=== PATIENT | female | born 1945 | race Caucasian/White ===

== ENCOUNTER 2017-05-28 04:54 | Emergency (ER) | payer OTHER, BC ==
[2017-05-28 05:04] VITALS: BMI 26.5
--- NOTE | 2017-05-28 05:24 | PDOC ---
History of Present Illness - General Chief Complaint: Cold Symptoms Stated Complaint: COUGH/CONGESTION Time Seen by Provider: 05/28/17 04:59 History Source: Patient Exam Limitations: No Limitations - History of Present Illness Initial Comments: 05/28/17 05:24 This is a 71-year-old female who comes in complaining cough, congestion, fever, chills, headache, body aches and chest pain. Patient has history significant for hypertension and high cholesterol. Patient said she is coughing up yellowish phlegm. Patient said she has fevers but never took her temperature. Patient said she did get the flu shot this year. PAST MEDICAL HISTORY: no significant history PAST SURGICAL HISTORY: no significant history FAMILY HISTORY: no pertinant history SOCIAL HISTORY: Pt lives with family and is employed. MEDICATIONS: reviewed ALLERGIES: As per nursing notes Review of Systems General: No fevers or chills, no weakness, no weight loss HEENT: No change in vision. No sore throat,. No ear pain CardioVascular: No chest pain or shortness of breath Respiratory:No cough, or wheezing. Gastrointestinal: no nausea, vomitting, diarrhea or constipation, No rectal bleeding Genitourinary: No dysuria, hematuria, or frequency Musculoskeletal: No joint or muscle pain or swelling Neurologic: No headache, vertigo, dizziness or loss of consciousness Psychiatric: nor depression Skin: No rashes or easy bruising Endocrine: no increased thirst or abnormal weight change Allergic: no skin or latex allergy All other systems reviewed and normal Exam: General: Well-nourished well-developed individual, no acute distress HEENT: Throat: Normal, tonsils normal, no erythema or exudate Neck: Supple, no meningeal signs, no lymphadenopathy Eyes::Pupils equal reactive and round, extraocular motion intact Chest: Nontender to palpation Cardiac: S1-S2 normal, regular rate and rhythm, no murmurs rubs or gallops Respiratory: Lungs clear to auscultation bilateral Abdomen: Soft, nondistended, normal bowel sounds, nontender to palpation diffusely Extremities: Warm, dry, no cyanosis, clubbing, or edema Skin: No rashes Neuro: Alert and oriented x3, CN II - XII intact, nonfocal exam with normal strength, normal sensation, normal reflexes, normal gait, Psych: Normal mood and affect Medical decision making This is a 71-year-old female with history of hypertension high cholesterol comes in with 2 days of flulike illness. Patient is also complaining of some anterior chest pain most likely secondary to the coughing and her underlying viral illness. However patient does have risk factors for coronary artery disease so We'll obtain CBC, comp, cardiac profile, EKG, chest x-ray and influenza screen. Will reassess and review results of workup 07:00 Care of this patient was transferred to Dr. Palacios at 7 a.m. Workup is still pending Case discussed in detail with oncoming Emergency Physician including history, physical exam and ancillary studies. Oncoming Emergency Physician has assumed care for the patient and will complete the evaluation and treatment. Patient is aware of the plan. Pt is clinically unchanged and stable. Past History - Past Medical History Allergies/Adverse Reactions: Allergies Allergy/AdvReac Type Severity Reaction Status Date / Time No Known Allergies Allergy Verified 01/01/14 12:40 Home Medications: Ambulatory Orders Cholecalciferol (Vitamin D3) [Vitamin D3] 500 unit PO DAILY 01/01/14 Levothyroxine [Synthroid -] 75 mcg PO DAILY 01/01/14 Rosuvastatin Calcium [Crestor] 20 mg PO DAILY 01/01/14 Aspirin [ASA -] 81 mg PO DAILY 01/02/14 Bisoprolol/Hydrochlorothiazide [Ziac 10-6.25 mg Tablet] 1 each PO DAILY Guaifenesin AC [Robitussin-AC] 1 - 2 tsp PO TID PRN #120 ml MDD 6 05/28/17 Metoprolol Tartrate 25 mg PO DAILY 05/28/17 COPD: No HTN: Yes Hypercholesterolemia: Yes Thyroid Disease: Yes - Suicide/Smoking/Psychosocial Hx Smoking History: Never smoked Have you smoked in the past 12 months: No Hx Alcohol Use: No Substance Use Type: None *Physical Exam - Vital Signs Last Vital Signs Temp Pulse Resp BP Pulse Ox 98.6 F 80 20 160/94 97 05/28/17 05:02 05/28/17 05:02 05/28/17 05:02 05/28/17 05:02 05/28/17 05:02 Heart Score/ECG Review - History History: Slightly suspicious - Electrocardiogram EKG: Non specific repolarization disturbance - Age Age: >/= 65 - Risk Factors Risk Factors Heart Score: Yes Hx Hypercholesterolemia, Yes Hx Hypertension Based on the list above the patient has:: 1-2 risk factors - Troponin Troponin: </= normal limit - Score Heart Score - Total: 4 ED Treatment Course - LABORATORY CBC & Chemistry Diagram: 05/28/17 05:44 05/28/17 05:40 *DC/Admit/Observation/Transfer Diagnosis at time of Disposition: Acute viral bronchitis - Discharge Dispostion Disposition: HOME Condition at time of disposition: Stable - Prescriptions Prescriptions: Guaifenesin AC [Robitussin-AC] 1 - 2 tsp PO TID PRN #120 ml MDD 6 PRN Reason: Cough - Referrals Referrals: Marquita Mancuso [Primary Care Provider] - 2 Days - Patient Instructions Printed Discharge Instructions: DI for Acute Bronchitis - Post Discharge Activity Forms/Work/School Notes: Back to Work
[2017-05-28 06:20] LABS: URINE APPEARANCE CLEAR; URINE BILIRUBIN NEGATIVE (NEGATIVE); URINE BLOOD 2+ (NEGATIVE); URINE COLOR STRAW; URINE GLUCOSE (UA) NEGATIVE (NEGATIVE); URINE KETONE NEGATIVE (NEGATIVE); URINE LEUK ESTERASE NEGATIVE (NEGATIVE); URINE NITRITE NEGATIVE (NEGATIVE); URINE PROTEIN NEGATIVE (NEGATIVE); URINE UROBILINOGEN NEGATIVE mg/dL (0.2-1.0)
[2017-05-28 06:24] LABS: BASO % 1.2 % (0-2.0); HEMATOCRIT 41.7 % (32.4-45.2); HEMOGLOBIN 14.2 GM/dL (10.7-15.3); LYMPH % 31.5 % (8-40); MCH 30.1 pg (25.7-33.7); MCHC 34.1 g/dl (32.0-36.0); MEAN CELL VOLUME 88.2 fl (80-96); MEAN PLT VOLUME 8.4 fl (7.5-11.1); MONO % 11.2 % (3.8-10.2); NEUT % 54.1 % (42.8-82.8); PLATELET COUNT 243 K/MM3 (134-434); RBC 4.72 M/mm3 (3.60-5.2); WHITE BLOOD COUNT 5.6 K/mm3 (4.0-10.0)
[2017-05-28 06:43] LABS: ALBUMIN 4.1 g/dl (3.4-5.0); ANION GAP 8 (8-16); BILIRUBIN,TOTAL 0.4 mg/dL (0.2-1.0); BLOOD UREA NITROGEN 14 mg/dL (7-18); CALCIUM 8.7 mg/dL (8.5-10.1); CHLORIDE 108 mmol/L (98-107); CO2 24 mmol/L (21-32); CREATININE 0.8 mg/dL (0.55-1.02); GLUCOSE,RANDOM 111 mg/dL (74-106); SGOT/AST 13 U/L (15-37); SGPT/ALT 23 U/L (12-78); SODIUM 140 mmol/L (136-145); TOT PROT 7.4 g/dl (6.4-8.2)
[2017-05-28 06:44] LABS: ALK PHOS 65 U/L (45-117)
[2017-05-28 08:04] LABS: URINE BACTERIA RARE /hpf (NONE SEEN); URINE MUCUS RARE
[2017-05-28 08:05] VITALS: BP 147/78; PULSE 74; TEMP 98
--- NOTE | 2017-05-28 08:17 | PDOC ---
*Physical Exam - Vital Signs Last Vital Signs Temp Pulse Resp BP Pulse Ox 98 F 74 18 147/78 97 05/28/17 08:04 05/28/17 08:04 05/28/17 08:04 05/28/17 08:04 05/28/17 08:04 - Physical Exam Comments: 05/28/17 08:15 The patient's cardiac enzymes are negative. Chest x-ray read by the radiologist negative CBC and chemistries without significant abnormalities, including a normal white count Patient has no chest pain at present, and the pain she had described seems more related to her coughing and chest congestion, muscle fatigue or chest wall irritation/inflammation Rest of medication prescribed, return to ER if further symptoms, otherwise see primary physician 2 or 3 days for recheck. Fully ambulatory, in no distress respiratory or otherwise, at discharge to follow-up as recommended ED Treatment Course - LABORATORY CBC & Chemistry Diagram: 05/28/17 05:44 05/28/17 05:40 - ADDITIONAL ORDERS Additional order review: Laboratory Results 05/28/17 05/28/17 05/28/17 05:44 05:40 05:40 Sodium 140 Potassium 4.0 Chloride 108 H Carbon Dioxide 24 Anion Gap 8 BUN 14 Creatinine 0.8 Creat Clearance w eGFR > 60 Random Glucose 111 H Calcium 8.7 Total Bilirubin 0.4 AST 13 L ALT 23 Alkaline Phosphatase 65 Creatine Kinase 56 Troponin I < 0.02 Total Protein 7.4 Albumin 4.1 Urine Color Straw Urine Appearance Clear Urine pH 6.0 Ur Specific Stigler 1.009 Urine Protein Negative Urine Glucose (UA) Negative Urine Ketones Negative Urine Blood 2+ H Urine Nitrite Negative Urine Bilirubin Negative Urine Urobilinogen Negative Ur Leukocyte Esterase Negative Urine WBC (Auto) 1 Urine RBC (Auto) 2 Urine Bacteria Rare Urine Mucus Rare 05/28/17 05:44 Influenza Types A,B Antigen (TOY) - Final Nasopharyngeal Swab - Final 05/28/17 05:44 RBC 4.72 MCV 88.2 MCHC 34.1 RDW 13.0 MPV 8.4 Neutrophils % 54.1 Lymphocytes % 31.5 Monocytes % 11.2 H Eosinophils % 2.0 Basophils % 1.2 *DC/Admit/Observation/Transfer Diagnosis at time of Disposition: Acute viral bronchitis - Discharge Dispostion Disposition: HOME Condition at time of disposition: Stable Admit: No - Prescriptions Prescriptions: Guaifenesin AC [Robitussin-AC] 1 - 2 tsp PO TID PRN #120 ml MDD 6 PRN Reason: Cough - Referrals Referrals: Marquita Mancuso [Primary Care Provider] - 2 Days - Patient Instructions Printed Discharge Instructions: DI for Acute Bronchitis - Post Discharge Activity Forms/Work/School Notes: Back to Work
--- NOTE | 2017-05-30 17:18 | EKG ---
Test Reason : Blood Pressure : / mmHG Vent. Rate : 077 BPM Atrial Rate : 077 BPM P-R Int : 164 ms QRS Dur : 100 ms QT Int : 396 ms P-R-T Axes : 038 -49 019 degrees QTc Int : 448 ms NORMAL SINUS RHYTHM LEFT AXIS DEVIATION MINIMAL VOLTAGE CRITERIA FOR LVH, MAY BE NORMAL VARIANT ANTERIOR INFARCT , AGE UNDETERMINED ABNORMAL ECG NO PREVIOUS ECGS AVAILABLE Confirmed by MIKALA PHILIP MD ([id number]) on 05/30/2017 5:18:00 PM Referred By: Confirmed By:MIKALA PHILIP MD
== END 2017-05-28 08:30 | disposition home or self-care (01) ==
LOC: FER 04:54
DX: J20.8 Acute bronchitis due to other specified organisms (principal); I10 Essential (primary) hypertension; E07.9 Disorder of thyroid, unspecified; E78.00 Pure hypercholesterolemia, unspecified
CPT/HCPCS: 36415; 71045-TC; 80053; 81003; 81015; 82550; 84484; 85025; 87804; 93005; 99282-25

== ENCOUNTER 2020-01-09 09:27 | Emergency (ER) | payer OTHER, BC ==
--- NOTE | 2020-01-09 09:30 | PDOC ---
History of Present Illness - General Chief Complaint: Urinary Problem Stated Complaint: burning/blood on urination Time Seen by Provider: 01/09/20 09:30 History Source: Patient Exam Limitations: No Limitations - History of Present Illness Travel History: No Initial Comments: 01/09/20 09:51 74y F hx of htn, hypothyfoidism, hl, presenst with complaint of dysuria for the past day, with some scant hematuria this morning. Pt denies any fever/chills, abd pain, n/v, back pain, cp, sob, vag dc or bleeding, diarrhea. No new medications. Hyun frequent UTIs - last one was many years ago. PMD: Dr. Moreno No known alelrgies Past History - Medical History Allergies/Adverse Reactions: Allergies Allergy/AdvReac Type Severity Reaction Status Date / Time No Known Allergies Allergy Verified 01/09/20 09:29 Home Medications: Ambulatory Orders Cholecalciferol (Vitamin D3) [Vitamin D3] 500 unit PO DAILY 01/01/14 Levothyroxine [Synthroid -] 75 mcg PO DAILY 01/01/14 Rosuvastatin Calcium [Crestor] 20 mg PO DAILY 01/01/14 Aspirin [ASA -] 81 mg PO DAILY 01/02/14 Metoprolol Tartrate 25 mg PO DAILY 05/28/17 Nitrofurantoin Monohyd/M-Cryst [Macrobid -] 100 mg PO BID #14 capsule 01/09/20 COPD: No HTN: Yes Hypercholesterolemia: Yes Thyroid Disease: Yes - Psycho-Social/Smoking History Smoking History: Never smoked Have you smoked in the past 12 months: No Review of Systems - Review of Systems Able to Perform ROS?: Yes Comments:: 01/09/20 09:52 Constitutional - no reported Fever, Chills, HEENT: no reported vision changes, sore throat Respiratory: no reported cough, sob, hemoptysis Cardiac: no reported chest pain, palpitations, light headedness, leg swelling Abd/GI: no reported abd pain, nausea, vomiting, blood per rectum, melena, diarrhea : +dysuria, no reported frequency, discharge Musculskelatal - no reported back pain, joint swelling skin - no reported bruising, erythema, rash neurological: no reported headache, numbness, focal weakness, tingling, ataxia, hematologic: no reported easy bruising, easy bleeding *Physical Exam - Physical Exam 01/09/20 09:54 GENERAL: The patient is awake, alert, and fully oriented, Nontoxic - in no acute distress. LUNGS: Breath sounds equal, clear to auscultation bilaterally. No wheezes, no rhonchi, no rales. HEART: Regular rate and rhythm, normal S1 and S2 without murmur, rub or gallop. ABDOMEN: Soft, nontender, No guarding, no rebound. No CVA tenderness EXTREMITIES: Normal range of motion, no edema. NEUROLOGICAL: No facial assymetry, Normal speech, PSYCH: Normal mood, normal affect. SKIN: Warm, Dry, normal turgor, Medical Decision Making - Medical Decision Making 01/09/20 09:54 Will obtain UA and urine culture to rule out UTI> No systemic complaints 01/09/20 10:27 UA suggestive of UTI will treat with macrobid will refer to PMD return precautions were discussed 01/09/20 10:27 I discussed the physical exam findings, ancillary test results and final diagnoses with the patient. I answered all of the patient's questions. The patient was satisfied with the care received and felt comfortable with the discharge plan and treatment plan. The patient will call their primary care physician within 24 hours to arrange follow-up and will return to the Emergency Department with any new, persistent or worsening symptoms. Discharge - Discharge Information Problems reviewed: Yes Clinical Impression/Diagnosis: Urinary tract infection Qualifiers: Urinary tract infection type: site unspecified Hematuria presence: with hematuria Qualified Code(s): N39.0 - Urinary tract infection, site not specified; R31.9 - Hematuria, unspecified Condition: Stable Disposition: HOME - Admission No - Additional Discharge Information Prescriptions: Nitrofurantoin Monohyd/M-Cryst [Macrobid -] 100 mg PO BID #14 capsule - Follow up/Referral Referrals: Mindy Moreno MD [Non Staff, Medical] - - Patient Discharge Instructions Patient Printed Discharge Instructions: DI for Urinary Tract Infection (UTI) Additional Instructions: Return to the emergency department immediately with ANY new, persistent or worsening symptoms Including any fever, chills, back pain, vomiting or any other concerns. Take the antibiotics as prescribed You MUST call and follow up with your doctor in 3-4 days for further evaluation of your symptoms. Results were discussed with you. Please make sure your doctor reviews the results of your emergency evaluation. Your Emergency Department visit is not complete without a follow up with your doctor. Print Language: CYMRO - Post Discharge Activity
[2020-01-09 09:37] VITALS: BP 156/97; PULSE 74; TEMP 97.9; BMI 27.3
[2020-01-09 10:54] LABS: EPITHELIAL CELLS FEW /hpf
== END 2020-01-09 10:35 | disposition home or self-care (01) ==
LOC: FER 09:27
DX: N39.0 Urinary tract infection, site not specified (principal)
CPT/HCPCS: 81003; 81015; 87086; 99283-25

== ENCOUNTER 2020-07-15 13:51 | Emergency (ER) | payer OTHER, BC | END 2020-07-15 14:10 | disposition home or self-care (01) | LOC: JVIRT 13:51 | DX: M79.10 Myalgia, unspecified site (principal); R05 Cough; Z20.822 Contact with and (suspected) exposure to COVID-19 | CPT/HCPCS: C9803; G2251-GT; U0003 ==

== ENCOUNTER 2020-07-22 13:30 | Emergency (ER) | payer OTHER, BC | END 2020-07-22 16:03 | disposition home or self-care (01) | LOC: JVIRT 13:30 | DX: U07.1 COVID-19 (principal) | CPT/HCPCS: C9803; G2251-GT; U0003 ==

== ENCOUNTER 2020-08-06 13:43 | Emergency (ER) | payer OTHER, BC | END 2020-08-06 14:56 | disposition home or self-care (01) | LOC: JVIRT 13:43 | DX: U07.1 COVID-19 (principal) | CPT/HCPCS: C9803; G2251-GT; U0003 ==

== ENCOUNTER 2023-08-01 13:39 | Emergency (ER) | payer OTHER, BC ==
[2023-08-01 14:12] VITALS: BP 139/77; PULSE 90; RESP 16; TEMP 99.7; BMI 27.6
[2023-08-01] MEDS ORDERED: guaiFENesin/CODEINE 10 ML UNIT-DOSE CUPS PO ONE (14:19)
[2023-08-01] MEDS ORDERED: ACETAMINOPHEN 325 MG TABLET (FP) ONE (14:36)
[2023-08-01] MEDS ORDERED: ALBUTEROL SO4 2.5/IPRATROPIUM 0.5 INH SOL 3 ML VIAL.NEB. NEB ONE (14:36)
[2023-08-01] MEDS ORDERED: guaiFENesin/CODEINE 10 ML UNIT-DOSE CUPS ONE (14:36)
[2023-08-01] MEDS: ACETAMINOPHEN 325 MG TABLET (FP) PO ONE (14:40)
[2023-08-01] MEDS: ALBUTEROL SO4 2.5/IPRATROPIUM 0.5 INH SOL 3 ML VIAL.NEB. NEB ONE (14:40)
== END 2023-08-01 15:41 | disposition home or self-care (01) ==
LOC: FER 13:39
PROC: 3E0F7GC Introduction of Other Therapeutic Substance into Respiratory Tract, Via Natural or Artificial Opening (ICD-10-PCS; principal; 2023-08-01)
DX: R05.9 Cough, unspecified (principal); B34.9 Viral infection, unspecified; M79.10 Myalgia, unspecified site; R09.81 Nasal congestion; R25.2 Cramp and spasm; R53.81 Other malaise; Z20.822 Contact with and (suspected) exposure to COVID-19
CPT/HCPCS: 0241U-QW; 71045-TC-FY; 99284-25

== ENCOUNTER 2023-08-05 21:15 | Inpatient (IN) | payer OTHER, BC ==
[2023-08-05 22:15] LABS: HEMOGLOBIN 13.6 G/dL (10.7-15.3); MCH 30.6 pg (25.7-33.7); MCHC 34.8 g/dl (32.0-36.0); MEAN CELL VOLUME 87.9 fl (80-96); MEAN PLT VOLUME 8.1 fl (7.5-11.1); PLATELET COUNT 251.1 10^3/uL (134-434); RBC 4.44 10^6/uL (3.60-5.2); RDW 13.5 % (11.6-15.6); WHITE BLOOD COUNT 7.1 10^3/uL (4.0-10.8)
[2023-08-05] MEDS: ALBUTEROL SO4 2.5/IPRATROPIUM 0.5 INH SOL 3 ML VIAL.NEB. NEB SCH (22:22)
[2023-08-05] MEDS: methylPREDNISolone NA SUCC 125 MG/2 ML VIAL IVPUSH ONE (22:22)
[2023-08-05] MEDS ORDERED: ALBUTEROL SO4 2.5/IPRATROPIUM 0.5 INH SOL 3 ML VIAL.NEB. NEB ONE (22:23)
[2023-08-05 22:36] LABS: ALBUMIN 4.6 g/dl (3.4-5.0); BILIRUBIN,TOTAL 0.5 mg/dl (0.2-1); CALCIUM 9.6 mg/dl (8.5-10.1); CREATININE 0.7 mg/dl (0.6-1.3); POTASSIUM 3.6 mmol/L (3.5-5.1); TOT PROT 7.1 g/dl (6.4-8.2)
[2023-08-05] MEDS ORDERED: DOCUSATE SODIUM 100 MG CAPSULE (FP) PO PRN (23:41)
[2023-08-05] MEDS ORDERED: ACETAMINOPHEN 325 MG TABLET (FP) PO PRN (23:41)
[2023-08-05] MEDS ORDERED: ALBUTEROL SO4 2.5/IPRATROPIUM 0.5 INH SOL 3 ML VIAL.NEB. NEB PRN (23:49)
[2023-08-06 01:33] VITALS: BMI 28.3
[2023-08-06] MEDS: methylPREDNISolone NA SUCC 40 MG/1 ML VIAL IVPUSH SCH (03:23)
[2023-08-06] MEDS: CEFTRIAXONE 1 GM in DEXTROSE 5%-WATER - 50 ML IVPB SCH (05:05)
[2023-08-06] MEDS ORDERED: INSULIN ASPART SLIDING SCALE (NOVOLOG) 1 VIAL SQ ONE (06:06)
[2023-08-06] MEDS: INSULIN ASPART SLIDING SCALE (NOVOLOG) 1 VIAL SQ SCH (06:18)
[2023-08-06] MEDS: ALBUTEROL SO4 2.5/IPRATROPIUM 0.5 INH SOL 3 ML VIAL.NEB. NEB SCH (08:14)
[2023-08-06] MEDS: LEVOTHYROXINE NA 100 MCG TABLET (FP) PO SCH (08:16)
[2023-08-06 08:50] LABS: CALCIUM 9.5 mg/dl (8.5-10.1); CREATININE 0.8 mg/dl (0.6-1.3); MAGNESIUM 1.7 mg/dL (1.8-2.4); PHOSPHOROUS 3.4 (2.5-4.9); POTASSIUM 3.6 mmol/L (3.5-5.1)
[2023-08-06] MEDS ORDERED: MAGNESIUM SULF 50% (8.12 MEQ/2 ML-1 GM VIAL) IVPB ONE (09:03)
[2023-08-06] MEDS: MAGNESIUM 1GM/D5W - 1 GM/100 ML IVPB IVPB ONE (09:19)
[2023-08-06] MEDS: LORATADINE 10 MG TABLET PO SCH (09:20)
[2023-08-06] MEDS: CHOLECALCIFEROL (VIT D3) 1,000 UNIT (25 MCG) TABLET PO SCH (09:20)
[2023-08-06] MEDS: PANTOPRAZOLE 40 MG TABLET PO SCH (09:20)
[2023-08-06] MEDS: metoPROLOL SUCCINATE 25 MG TAB.SR.24H (FP) PO SCH (09:20)
[2023-08-06] MEDS: AZITHROMYCIN 250 MG TABLET PO SCH (09:20)
[2023-08-06] MEDS: ACETAMINOPHEN 325 MG TABLET (FP) PO PRN (09:21)
[2023-08-06] MEDS: predniSONE 20 MG TABLET (UD) PO SCH (09:21)
[2023-08-06 09:25] LABS: BASO % 0.4 % (0-2.0); HEMATOCRIT 38.8 % (32.4-45.2); HEMOGLOBIN 13.3 GM/dL (10.7-15.3); LYMPH % 11.8 % (8-40); MCH 29.7 pg (25.7-33.7); MCHC 34.3 g/dl (32.0-36.0); MEAN CELL VOLUME 86.7 fl (80-96); MEAN PLT VOLUME 8.1 fl (7.5-11.1); MONO % 0.7 % (3.8-10.2); NEUT % 87.1 % (42.8-82.8); PLATELET COUNT 275 10^3/uL (134-434); RBC 4.47 M/mm3 (3.60-5.2); RDW 13.1 % (11.6-15.6); WHITE BLOOD COUNT 9.6 K/mm3 (4.0-10.0)
[2023-08-06] MEDS: FLUTICASONE PROP 0.05% 16 GM NASAL SPRAY NS SCH (09:44)
[2023-08-06] MEDS: ROSUVASTATIN CA 20 MG TABLET PO SCH (21:39)
[2023-08-06] MEDS: guaiFENesin/D-METHORPHAN HB 10 ML UNIT-DOSE CUPS PO PRN (21:41)
[2023-08-07 08:05] LABS: HEMATOCRIT 39.2 % (32.4-45.2); MCH 29.6 pg (25.7-33.7); MCHC 33.2 g/dl (32.0-36.0); MEAN PLT VOLUME 8.5 fl (7.5-11.1); PLATELET COUNT 273.5 10^3/uL (134-434); RDW 13.4 % (11.6-15.6); WHITE BLOOD COUNT 9.2 10^3/uL (4.0-10.8)
[2023-08-07 08:45] LABS: CALCIUM 9.7 mg/dl (8.5-10.1); CREATININE 0.8 mg/dl (0.6-1.3); MAGNESIUM 2.1 mg/dL (1.8-2.4); PHOSPHOROUS 2.8 (2.5-4.9); POTASSIUM 4.1 mmol/L (3.5-5.1)
[2023-08-08 09:43] VITALS: BP 128/73; PULSE 71; RESP 15; TEMP 98.6
== END 2023-08-08 12:30 | disposition home or self-care (01) | DRG 153 ==
LOC: FER 21:15 → FM/S 23:57 → OBSVTOIN 08-07 14:33
PROVIDERS: ADMIT Internal Medicine; ATTEND Internal Medicine
DX: J06.9 Acute upper respiratory infection, unspecified (principal); I10 Essential (primary) hypertension; E78.5 Hyperlipidemia, unspecified; E11.9 Type 2 diabetes mellitus without complications; E03.9 Hypothyroidism, unspecified; Z79.84 Long term (current) use of oral hypoglycemic drugs
CPT/HCPCS: 0241U-QW; 36415; 71045-TC-FY; 80048; 80053; 82550; 82962; 83735; 83880; 84100; 84443; 84484; 85025; 85027; 87040; 93005; 94640; 97116-GP; 97161-GP; 99285-25; G0378

== ENCOUNTER 2024-01-28 16:35 | Emergency (ER) | payer OTHER, BC ==
[2024-01-28 16:54] VITALS: RESP 16; TEMP 98.1; BMI 26.4
[2024-01-28 19:05] VITALS: BP 116/66; PULSE 76
== END 2024-01-28 19:23 | disposition home or self-care (01) ==
LOC: FER 16:35
DX: S09.90XA Unspecified injury of head, initial encounter (principal); M25.511 Pain in right shoulder; W01.198A Fall on same level from slipping, tripping and stumbling with subsequent striking against other object, initial encounter
CPT/HCPCS: 70450-TC; 72125-TC; 73030-TC-RT-FY; 99284-25